=== PATIENT | male | born 1950 | race Caucasian/White ===

== ENCOUNTER 2018-12-02 13:23 | Inpatient (IN) | payer OTHER, BC ==
--- NOTE | 2018-12-02 13:43 | PDOC ---
History of Present Illness - General Chief Complaint: Wound Stated Complaint: PCP SENT Time Seen by Provider: 12/02/18 13:42 - History of Present Illness Initial Comments: 68yo M with PMH of DM and HTN presenting with wound on his left foot. Patient reports that this wound has been present since about four months ago due to rubbing against the inside of his sneaker and has not healed. He presented to the ED at [facility] twice, most recently last Friday and was administered IV antibiotics while in the department. He was advised stay for admission, but declined. Patient was started on outpatient antibiotics Keflex and Bactrim. He saw his primary care physician, Dr. Tinajero, today who sent him to a corrections sergeant, Dr. Stewart upstairs from the clinic. Dr. Stewart recommended that the patient come to the ED and be admitted under Dr. Roche, with consults to Dr. Myles, Dr. Hardy, and Dr. Stewart. Patient has no acute complaints. No fever, chills, chest pain, or shortness of breath. Past History - Past Medical History Allergies/Adverse Reactions: Allergies Allergy/AdvReac Type Severity Reaction Status Date / Time No Known Allergies Allergy Verified 12/02/18 13:43 Home Medications: Ambulatory Orders Cephalexin [Keflex] 500 mg PO BID 12/02/18 Hydrochlorothiazide [Hctz -] 25 mg PO DAILY 12/02/18 Losartan Potassium 100 mg PO DAILY 12/02/18 Sulfamethoxazole/Trimethoprim [Sulfamethoxazole-Tmp Ds Tablet] 1 each PO BID 01/19 metFORMIN HCL [Metformin HCl] 850 mg PO BID 12/02/18 COPD: No CHF: No Diabetes: Yes - Suicide/Smoking/Psychosocial Hx Smoking History: Never smoked Have you smoked in the past 12 months: No Information on smoking cessation initiated: No Hx Alcohol Use: No Drug/Substance Use Hx: No Review of Systems - Review of Systems Comments:: Constitutional: no fever, no chills HEENT: no throat pain, no dysphagia Cardiovascular: no chest pain, no palpitations Respiratory: no cough, no shortness of breath Gastrointestinal: no abdominal pain, no nausea, no vomiting Genitourinary: no dysuria, no frequency Musculoskeletal: no myalgia, no arthralgia Skin: +wound, no itching Neurologic: no headache, no dizziness *Physical Exam - Vital Signs Last Vital Signs Temp Pulse Resp BP Pulse Ox 98.0 F 61 16 94/63 100 12/02/18 13:30 12/02/18 13:30 12/02/18 13:30 12/02/18 13:30 12/02/18 13:30 - Physical Exam Comments: General: Awake, alert, and fully oriented, in no acute distress Head: No signs of trauma Eyes: EOMI, sclera anicteric ENT: Moist mucus membranes Neck: Normal ROM, supple Lungs: Lungs clear, Normal breath sounds Cardio: Regular rhythm, S1 and S2 present Abdomen: Soft, nontender. No guarding, no rebound, no masses Extremities: Normal range of motion, Wound on left foot overlying the fifth metatarsal and proximal phalanx with two stage four ulcers- one on the superior and one on the inferior aspect, with surrounding induration and erythema, redness has been demarcated with a pen SKIN: Warm, Dry, normal turgor Neurologic: Cranial nerves II through XII grossly intact. Normal speech Moderate Sedation - Procedure Monitoring Vital Signs: Procedure Monitoring Vital Signs Temperature 98.0 F 12/02/18 13:30 Pulse Rate 61 12/02/18 13:30 Respiratory Rate 16 12/02/18 13:30 Blood Pressure 94/63 12/02/18 13:30 O2 Sat by Pulse Oximetry (%) 100 12/02/18 13:30 ED Treatment Course - LABORATORY CBC & Chemistry Diagram: 12/02/18 14:55 12/02/18 14:55 Medical Decision Making - Medical Decision Making 68yo M with PMH of DM and HTN presenting with wound on his left foot. -DDX includes but not limited to foot ulcer, osteomyelitis, sepsis, orthostatic hypotension -Pre-op labs: no leukocytosis or anemia, electrolytes with elevated BUN and Cr ( do not know patient's baseline as he has never been here before) -Zq=804, slightly low, 1L NS ordered -Though patient appears clinically non-toxic, unknown why he is hypotensive. Fluid hydration with partial septic workup: UA/UCx, CXR, Blood Cx -Antibiotics: Vanc and Zosyn -L. foot xray: "arthritic changes. possible osteomyelitis involvement of left fifth metatarsal and left toe proximal phalanx" -ESR/CRP= 71/3.1 elevated -Discussed case with Dr. Burger who accepted patient for admission. 12/02/18 17:00 *DC/Admit/Observation/Transfer Diagnosis at time of Disposition: Osteomyelitis - Discharge Dispostion Condition at time of disposition: Guarded Decision to Admit order: Yes - Referrals - Patient Instructions - Post Discharge Activity
--- NOTE | 2018-12-02 15:19 | PDOC ---
Attending Attestation - HPI HPI: 12/02/18 16:16 The patient is a 68-year-old male, with a past medical history of DM, who was sent to the ED by his PCP for evaluation of a nonhealing LT foot wound to the base of the 5th digit. <Esha Priest - Last Filed: 12/02/18 16:16> - Resident Resident Name: Ally Winslow - ED Attending Attestation I have performed the following: I have examined & evaluated the patient, The case was reviewed & discussed with the resident, I agree w/resident's findings & plan, Exceptions are as noted - Physicial Exam PE: 12/02/18 16:36 Patient is awake and alert, nontoxic-appearing, borderline hypotensive and initial evaluation, afebrile Normocephalic and atraumatic cta rrr sft, nt, nd + 2 ulcers (stage IV) in noted to the base of the fifth phalange of the left foot with extensive surrounding erythema. Dorsalis pedis and tibialis posterior are +2 - Medical Decision Making 12/02/18 16:40 68-year-old male with history of diabetes, hypertension presents with signs and symptoms of acute osteomyelitis. Foot x-ray reveals bony distraction of the distal fifth metatarsal and the proximal phalanx. Wound culture and blood cultures been obtained. We'll cover with broad-spectrum antibiotics. Consult podiatry. Will admit. <Eloy Fatima - Last Filed: 12/02/18 16:42> Attestations - Attestations 12/02/18 16:16 Documentation prepared by Esha Priest, acting as medical geneticist for Eloy Fatima MD. <Esha Priest - Last Filed: 12/02/18 16:16>
[2018-12-02 15:29] LABS: BASO % 0.9 % (0-2.0); EOS % 0.5 % (0-4.5); HEMATOCRIT 40.5 % (35.4-49); HEMOGLOBIN 13.5 GM/dL (11.7-16.9); LYMPH % 12.2 % (8-40); MCH 29.6 pg (25.7-33.7); MCHC 33.5 g/dl (32.0-35.9); MEAN CELL VOLUME 88.6 fl (80-96); MEAN PLT VOLUME 8.6 fl (7.5-11.1); MONO % 6.6 % (3.8-10.2); NEUT % 79.8 % (42.8-82.8); PLATELET COUNT 298 K/MM3 (134-434); RBC 4.57 M/mm3 (4.00-5.60); RDW 12.2 % (11.9-15.9); WHITE BLOOD COUNT 8.3 K/mm3 (4.0-10.0)
[2018-12-02 15:40] LABS: INR 1.24 (0.83-1.09); PROTHROMBIN TIME (PATIENT) 14.7 SEC (9.7-13.0)
[2018-12-02 15:43] LABS: ACTIVATED PTT 25.6 SECONDS (25.2-36.5)
[2018-12-02] MEDS ORDERED: PIPERACILLIN/TAZOB 4.5 GM 4.5 GM in DEXTROSE 5%-WATER 100 ML IVPB ONE (16:05)
[2018-12-02] MEDS ORDERED: VANCOMYCIN 1,000 MG in DEXTROSE 5%-WATER - 250 ML IVPB ONE (16:05)
[2018-12-02 16:07] LABS: ALBUMIN 3.1 g/dl (3.4-5.0); ALK PHOS 78 U/L (45-117); ANION GAP 7 MMOL/L (8-16); BILIRUBIN,TOTAL 0.9 mg/dL (0.2-1); BLOOD UREA NITROGEN 24 mg/dL (7-18); CALCIUM 8.9 mg/dL (8.5-10.1); CHLORIDE 94 mmol/L (98-107); CO2 30 mmol/L (21-32); CREATININE 1.4 mg/dL (0.55-1.3); GLUCOSE,RANDOM 202 mg/dL (74-106); POTASSIUM 4.6 mmol/L (3.5-5.1); SGOT/AST 18 U/L (15-37); SGPT/ALT 28 U/L (13-61); SODIUM 132 mmol/L (136-145); TOT PROT 7.1 g/dl (6.4-8.2)
[2018-12-02] MEDS ORDERED: SODIUM CHLORIDE 1,000 ML IV STA (16:12)
[2018-12-02] MEDS ORDERED: PIPERACILLIN/TAZOB 4.5 GM 4.5 GM/100 ML BAG IVPB ONE (16:26)
[2018-12-02] MEDS ORDERED: VANCOMYCIN 1 GRAM (PRE-DOCKED) 1,000 MG/250 ML BAG IVPB ONE (16:42)
[2018-12-02 16:57] LABS: URINE APPEARANCE CLOUDY; URINE BILIRUBIN NEGATIVE (<2.0 mg/dL); URINE COLOR LTYELLOW; URINE GLUCOSE (UA) NEGATIVE (NEGATIVE); URINE KETONE NEGATIVE (NEGATIVE); URINE LEUK ESTERASE NEGATIVE (NEGATIVE); URINE NITRITE NEGATIVE (NEGATIVE); URINE PROTEIN NEGATIVE (NEGATIVE); URINE UROBILINOGEN NEGATIVE mg/dL (0.2-1.0)
--- NOTE | 2018-12-02 18:06 | EKG ---
Test Reason : Blood Pressure : / mmHG Vent. Rate : 096 BPM Atrial Rate : 096 BPM P-R Int : 222 ms QRS Dur : 090 ms QT Int : 340 ms P-R-T Axes : 016 013 027 degrees QTc Int : 429 ms SINUS RHYTHM WITH 1ST DEGREE A-V BLOCK NONSPECIFIC ST AND T WAVE ABNORMALITY ABNORMAL ECG NO PREVIOUS ECGS AVAILABLE Confirmed by AMANDA GARZA MD ([id number]) on 12/02/2018 6:05:39 PM Referred By: Confirmed By:AMANDA GARZA MD
[2018-12-02 20:06] LABS: ERYTHROCYTE SEDIMENTATION RATE 71 mm/hr (0-20)
--- NOTE | 2018-12-02 22:20 | HP ---
Admitting History and Physical - Smoking History Smoking history: Never smoked Have you smoked in the past 12 months: No - Alcohol/Substance Use Hx Alcohol Use: No Home Medications - Allergies Allergies/Adverse Reactions: Allergies Allergy/AdvReac Type Severity Reaction Status Date / Time No Known Allergies Allergy Verified 12/02/18 13:43 - Home Medications Home Medications: Ambulatory Orders Cephalexin [Keflex] 500 mg PO BID 12/02/18 Hydrochlorothiazide [Hctz -] 25 mg PO DAILY 12/02/18 Losartan Potassium 100 mg PO DAILY 12/02/18 Sulfamethoxazole/Trimethoprim [Sulfamethoxazole-Tmp Ds Tablet] 1 each PO BID 01/19 metFORMIN HCL [Metformin HCl] 850 mg PO BID 12/02/18 Physical Examination Vital Signs: Vital Signs Temperature 98.6 F 12/02/18 19:40 Pulse Rate 97 H 12/02/18 19:40 Respiratory Rate 16 12/02/18 19:40 Blood Pressure 106/63 12/02/18 19:40 O2 Sat by Pulse Oximetry (%) 98 12/02/18 19:40 Labs: CBC, BMP 12/02/18 14:55 12/02/18 14:55
[2018-12-02] MEDS: HEPARIN NA (PORCINE) 5,000 UNITS/ML 1ML VIAL SQ SCH (22:31)
[2018-12-02] MEDS: INSULIN SLIDING SCALE (NOVOLOG) 1 VIAL SQ SCH (22:34)
[2018-12-03] MEDS: HEPARIN NA (PORCINE) 5,000 UNITS/ML 1ML VIAL SQ SCH ×3 (05:59→21:45)
[2018-12-03] MEDS: INSULIN SLIDING SCALE (NOVOLOG) 1 VIAL SQ SCH ×4 (05:59→22:14)
[2018-12-03] MEDS ORDERED: PT OWN MED DRAWER 7, Y5N ONE ×4 (06:12→21:24)
[2018-12-03 06:40] LABS: BASO % 1.1 % (0-2.0); EOS % 1.6 % (0-4.5); HEMATOCRIT 38.9 % (35.4-49); HEMOGLOBIN 12.9 GM/dL (11.7-16.9); LYMPH % 22.5 % (8-40); MCH 29.6 pg (25.7-33.7); MCHC 33.3 g/dl (32.0-35.9); MEAN PLT VOLUME 8.2 fl (7.5-11.1); MONO % 10.3 % (3.8-10.2); NEUT % 64.5 % (42.8-82.8); PLATELET COUNT 263 K/MM3 (134-434); RBC 4.37 M/mm3 (4.00-5.60); RDW 12.1 % (11.9-15.9); WHITE BLOOD COUNT 6.7 K/mm3 (4.0-10.0)
[2018-12-03 07:08] LABS: ALK PHOS 74 U/L (45-117); ANION GAP 8 MMOL/L (8-16); BILIRUBIN,TOTAL 0.4 mg/dL (0.2-1); BLOOD UREA NITROGEN 19 mg/dL (7-18); CALCIUM 8.8 mg/dL (8.5-10.1); CHLORIDE 99 mmol/L (98-107); CO2 30 mmol/L (21-32); CREATININE 1.2 mg/dL (0.55-1.3); GLUCOSE,RANDOM 142 mg/dL (74-106); POTASSIUM 4.7 mmol/L (3.5-5.1); SGOT/AST 15 U/L (15-37); SGPT/ALT 26 U/L (13-61); SODIUM 137 mmol/L (136-145); TOT PROT 6.6 g/dl (6.4-8.2)
--- NOTE | 2018-12-03 09:34 | CONSULT ---
Consult Consult Specialty:: Podiatry Reason for Consultation:: Infected diabetic foot ulcer left foot - History of Present Illness Chief Complaint: Infected left foot for over 2 weeks. History of Present Illness: Infected left foot wound for more than 2 weeks. - History Source History Provided By: Patient - Alcohol/Substance Use Hx Alcohol Use: No - Smoking History Smoking history: Never smoked Have you smoked in the past 12 months: No Home Medications - Allergies Allergies/Adverse Reactions: Allergies Allergy/AdvReac Type Severity Reaction Status Date / Time No Known Allergies Allergy Verified 12/02/18 13:43 - Home Medications Home Medications: Ambulatory Orders Cephalexin [Keflex] 500 mg PO BID 12/02/18 Hydrochlorothiazide [Hctz -] 25 mg PO DAILY 12/02/18 Losartan Potassium 100 mg PO DAILY 12/02/18 Sulfamethoxazole/Trimethoprim [Sulfamethoxazole-Tmp Ds Tablet] 1 each PO BID 01/19 metFORMIN HCL [Metformin HCl] 850 mg PO BID 12/02/18 Physical Exam Vital Signs: Vital Signs Temperature 98.2 F 12/03/18 06:00 Pulse Rate 80 12/03/18 06:00 Respiratory Rate 18 12/03/18 06:00 Blood Pressure 134/72 12/03/18 06:00 O2 Sat by Pulse Oximetry (%) 97 12/02/18 21:00 Extremities: Yes: Other (+cellulitis, +ulceration dorsal and plantar left foot, -mal odor, +necrotic tissue, +pvd) Labs: CBC, BMP 12/03/18 06:15 12/03/18 06:15 Assessment/Plan grade 3 wound left r/o om pvd Vascular consult and ID consult ordered. MRI. Hgba1c. CRP. Santyl dressing change daily. Patient anxious and eager to leave re-emphasized need for patients and allowing treatment to reduce morbidity. Will follow.
[2018-12-03] MEDS: LOSARTAN POTASSIUM 50 MG TABLET (FP) PO SCH (09:54)
[2018-12-03] MEDS: HYDROCHLOROTHIAZIDE 25 MG TABLET (FP) PO SCH (09:54)
--- NOTE | 2018-12-03 11:06 | CONSULT ---
- Consultation REQUESTING PROVIDER: CONSULT REQUEST: We have been asked to surgically evaluate this patient for left foot ulcer. PCP:Ally Burger HISTORY OF PRESENT ILLNESS: The patient is a 77 yo male who presented for admission after being seen by Dr. Martines in his office. He has a new diagnosis of DM after being admitted to [facility] in the past 2 to 3 months. He was seen and treated at [facility] for his left foot wound and infection at that time. More recently he went there last week when he was feeling ill and was seen but denied staying secondary to issues at home. This week he had a follow up appointment his primary care doctor and they sent him for an evaluation by Dr. Martines. Currently he denies any fever/chills and states that the redness has improved. He denies any history of lower extremity claudicating symptoms, no numbness or tingling to his feet. He ambulates without any assist devices and besides the current ulcer(for the past several months) he has no history of ulcers to his lower extremities. He has never been a smoker. PMHx: DM, HTN PSHx: denies Home Medications Medication Instructions Recorded Cephalexin [Keflex] 500 mg PO BID 12/02/18 Hydrochlorothiazide [Hctz -] 25 mg PO DAILY 12/02/18 Losartan Potassium 100 mg PO DAILY 12/02/18 Sulfamethoxazole/Trimethoprim 1 each PO BID 12/02/18 [Sulfamethoxazole-Tmp Ds Tablet] metFORMIN HCL [Metformin HCl] 850 mg PO BID 12/02/18 Allergies Allergy/AdvReac Type Severity Reaction Status Date / Time No Known Allergies Allergy Verified 12/02/18 13:43 REVIEW OF SYSTEMS: CONSTITUTIONAL: Absent: fever, chills CARDIOVASCULAR: Absent: chest pain, palpitations RESPIRATORY: Absent: cough, shortness of breath GASTROINTESTINAL: Absent: abdominal pain,has never had a colonoscopy GENITOURINARY: Absent: dysuria, hematuria MUSCULOSKELETAL: Absent: back pain, neck pain Present: bilateral knee pain NEUROLOGIC: Absent: focal weakness, paresthesias PHYSICAL EXAM: GENERAL: Awake, alert, and fully oriented, in no acute distress. LOWER EXTREMITIES: 2+ PT pulses, +1 DP pulses-bilaterally feet are warm, well- perfused. Left lateral 5th toe with 1x1cm ulcer/superficial with fibrinous material at the base. No foul odor. Surrounding erythema with evidence of improving(based on skin markings with pen) NEUROLOGICAL: Normal speech, gait steady. PSYCH: Cooperative. Good eye contact. Appropriate mood and affect. . Vital Signs Temperature 98.2 F 12/03/18 06:00 Pulse Rate 80 12/03/18 06:00 Respiratory Rate 18 12/03/18 06:00 Blood Pressure 134/72 12/03/18 06:00 O2 Sat by Pulse Oximetry (%) 97 12/02/18 21:00 Lab Results WBC 6.7 K/mm3 (4.0-10.0) 12/03/18 06:15 RBC 4.37 M/mm3 (4.00-5.60) 12/03/18 06:15 Hgb 12.9 GM/dL (11.7-16.9) 12/03/18 06:15 Hct 38.9 % (35.4-49) 12/03/18 06:15 MCV 89.0 fl (80-96) 12/03/18 06:15 MCHC 33.3 g/dl (32.0-35.9) 12/03/18 06:15 RDW 12.1 % (11.9-15.9) 12/03/18 06:15 Plt Count 263 K/MM3 (134-434) 12/03/18 06:15 Sodium 137 mmol/L (136-145) 12/03/18 06:15 Potassium 4.7 mmol/L (3.5-5.1) 12/03/18 06:15 Chloride 99 mmol/L (98-107) 12/03/18 06:15 Carbon Dioxide 30 mmol/L (21-32) 12/03/18 06:15 Anion Gap 8 MMOL/L (8-16) 12/03/18 06:15 BUN 19 mg/dL (7-18) H 12/03/18 06:15 Creatinine 1.2 mg/dL (0.55-1.3) 12/03/18 06:15 Random Glucose 142 mg/dL (74-106) H 12/03/18 06:15 Calcium 8.8 mg/dL (8.5-10.1) 12/03/18 06:15 Blood Type B POSITIVE 12/02/18 20:55 Antibody Screen Negative 12/02/18 14:55 INR 1.24 (0.83-1.09) H 12/02/18 14:55 Xray: left 5th metatarsal and proximal phalanx with possible evidence of osteomyelitits. Soft tissue edema and swelling. Problem List - Problems (1) Diabetic foot infection Assessment/Plan: Pt without and evidence of acute ischemia to the left foot. He has faint distal pulses with palpation and no history of claudication symptoms. His ulcer appears to be improving with IV abx. Xray is suspicious for osteomyelitits underlying the left 5th base of toe ulcer. Recommend local wound care with santyl daily dressing changes. MRI is ordered to evaluate for osteomyelitits. D/w Dr. Hardy and will obtain a CTA of the left leg Code(s): E11.628 - TYPE 2 DIABETES MELLITUS WITH OTHER SKIN COMPLICATIONS; L08.9 - LOCAL INFECTION OF THE SKIN AND SUBCUTANEOUS TISSUE, UNSP
--- NOTE | 2018-12-03 14:15 | CON.ID ---
Consult Consult Specialty:: infectious diseases Referred by:: Reason for Consultation:: swelling of the foot and probably osteo of the leg - History of Present Illness Chief Complaint: pain and swelling of the left leg History of Present Illness: 68yo M with PMH of DM and HTN presenting with wound on his left foot. Patient reports that this wound has been present since about four months ago due to rubbing against the inside of his sneaker and has not healed. He presented to the ED at [facility] twice, most recently last Friday and was administered IV antibiotics while in the department. He was advised stay for admission, but declined. Patient was started on outpatient antibiotics Keflex and Bactrim. patient leg has worsened and has been advised admission to try to save his toe and to see osteo and treat the patient - History Source History Provided By: Patient Limitations to Obtaining History: No Limitations - Alcohol/Substance Use Hx Alcohol Use: No - Smoking History Smoking history: Never smoked Have you smoked in the past 12 months: No Home Medications - Allergies Allergies/Adverse Reactions: Allergies Allergy/AdvReac Type Severity Reaction Status Date / Time No Known Allergies Allergy Verified 12/02/18 13:43 - Home Medications Home Medications: Ambulatory Orders Cephalexin [Keflex] 500 mg PO BID 12/02/18 Hydrochlorothiazide [Hctz -] 25 mg PO DAILY 12/02/18 RX: Losartan Potassium 100 mg PO DAILY 12/02/18 Sulfamethoxazole/Trimethoprim [Sulfamethoxazole-Tmp Ds Tablet] 1 each PO BID 01/19 metFORMIN HCL [Metformin HCl] 850 mg PO BID 12/02/18 Review of Systems - Review of Systems Constitutional: reports: No Symptoms Eyes: reports: No Symptoms HENT: reports: No Symptoms Neck: reports: No Symptoms Cardiovascular: reports: No Symptoms Respiratory: reports: No Symptoms Gastrointestinal: reports: No Symptoms Genitourinary: reports: No Symptoms Musculoskeletal: reports: Other Integumentary: reports: Erythema, Lesions Neurological: reports: No Symptoms Endocrine: reports: No Symptoms Hematology/Lymphatic: reports: No Symptoms Psychiatric: reports: No Symptoms Physical Exam Vital Signs: Vital Signs Temperature 98.2 F 12/03/18 06:00 Pulse Rate 80 12/03/18 06:00 Respiratory Rate 18 12/03/18 06:00 Blood Pressure 134/72 12/03/18 06:00 O2 Sat by Pulse Oximetry (%) 97 01/02/19 21:00 Constitutional: Yes: Well Nourished, Calm, Mild Distress Eyes: Yes: Conjunctiva Clear HENT: Yes: Atraumatic, Normocephalic Neck: Yes: Supple, Trachea Midline Cardiovascular: Yes: Regular Rate and Rhythm Respiratory: Yes: Regular, CTA Bilaterally Gastrointestinal: Yes: Normal Bowel Sounds, Soft Musculoskeletal: Yes: Other Extremities: Yes: Erythema (left foot) Integumentary: Yes: Erythema, Other Wound/Incision: Yes: Dressing Removed, Other (wound looked at,probably going to the bone) Neurological: Yes: Alert, Oriented Psychiatric: Yes: Alert, Oriented Labs: CBC, BMP 12/03/18 06:15 12/03/18 06:15 Imaging - Results Chest X-ray: Report Reviewed, Image Reviewed X-ray: Report Reviewed, Image Reviewed Assessment/Plan patient with medical problems osteo of the left 5th toe erythema of the foot plan will start patient on abx podiatry on case await for further imaging studies rest as per the team
[2018-12-03] MEDS ORDERED: DEXTROSE 5%-WATER - 50 ML IVPB ONE ×2 (14:43→17:35)
[2018-12-03] MEDS ORDERED: PIPERACILLIN/TAZOBACTAM 3.375 GM VIAL IVPB ONE ×2 (14:43→17:34)
[2018-12-03] MEDS: PIPERACILLIN/TAZOB 3.375 GM 3.375 GM in DEXTROSE 5%-WATER - 50 ML IVPB SCH ×2 (14:56→18:23)
[2018-12-03] MEDS: COLLAGENASE CLOSTRIDIUM HIST. 30 GRAMS TUBE TP SCH (14:57)
--- NOTE | 2018-12-03 16:09 | PN ---
Progress Note (short form) - Note Progress Note: Vascular surgery Pt seen and examined. Left fifth toe ulcer for over two months. Pt has been going to [facility] for evaluation. NOw comes into [facility]. On exam -- left fifth toe ulcer. Palpable PT pulse. No DP pulse palpable - only dopplerable. Will order CTA to check runoff into foot. Podiatry on case -- MRI ordered to rule out osteo. Will follow cta Ole Hardy DO
--- NOTE | 2018-12-03 23:38 | PN ---
Progress Note, Physician - Current Medication List Current Medications: Active Medications Collagenase (Santyl -) 1 applic TP DAILY [facility]; Protocol Last Admin: 12/03/18 14:57 Dose: 1 applic Heparin Sodium (Porcine) (Heparin -) 5,000 unit SQ TID [facility] Last Admin: 12/03/18 21:45 Dose: 5,000 unit Hydrochlorothiazide (Hctz -) 25 mg PO DAILY [facility] Last Admin: 12/03/18 09:54 Dose: 25 mg Piperacillin Sod/Tazobactam (Sod 3.375 gm/ Dextrose) 50 mls @ 100 mls/hr IVPB Q8H-IV [facility]; Protocol Last Admin: 12/03/18 18:23 Dose: 100 mls/hr Insulin Aspart (Novolog Vial Sliding Scale -) 1 vial SQ ACHS [facility]; Protocol Last Admin: 12/03/18 22:14 Dose: 2 unit Losartan Potassium (Cozaar -) 100 mg PO DAILY [facility] Last Admin: 12/03/18 09:54 Dose: 100 mg Metformin HCl (Glucophage -) 850 mg PO BIDAC [facility] Last Admin: 12/03/18 17:57 Dose: Not Given - Objective Vital Signs: Vital Signs Temperature 98.1 F 12/03/18 14:21 Pulse Rate 91 H 12/03/18 14:21 Respiratory Rate 17 12/03/18 14:21 Blood Pressure 115/73 12/03/18 14:21 O2 Sat by Pulse Oximetry (%) 99 12/03/18 09:00 Labs: CBC, BMP 12/03/18 06:15 12/03/18 06:15 INR, PTT INR 1.24 (0.83-1.09) H 12/02/18 14:55
[2018-12-04] MEDS ORDERED: PIPERACILLIN/TAZOBACTAM 3.375 GM VIAL IVPB ONE ×4 (00:58→17:29)
[2018-12-04] MEDS ORDERED: DEXTROSE 5%-WATER - 50 ML IVPB ONE ×4 (00:58→17:29)
[2018-12-04] MEDS: PIPERACILLIN/TAZOB 3.375 GM 3.375 GM in DEXTROSE 5%-WATER - 50 ML IVPB SCH ×3 (01:13→17:38)
[2018-12-04] MEDS: HEPARIN NA (PORCINE) 5,000 UNITS/ML 1ML VIAL SQ SCH ×3 (05:21→21:26)
[2018-12-04] MEDS: INSULIN SLIDING SCALE (NOVOLOG) 1 VIAL SQ SCH ×4 (07:03→21:26)
[2018-12-04] MEDS ORDERED: PT OWN MED DRAWER 7, Y5N ONE ×2 (07:07→08:19)
[2018-12-04] MEDS: HYDROCHLOROTHIAZIDE 25 MG TABLET (FP) PO SCH (09:49)
[2018-12-04] MEDS: LOSARTAN POTASSIUM 50 MG TABLET (FP) PO SCH (09:49)
--- NOTE | 2018-12-04 14:33 | PN ---
Progress Note (short form) - Note Progress Note: Patient seen in bed. VSS Tmax=97.9 +om, +cellulitis, +grade 3 wound left foot, reviewed CTA om wound Discussed with pt the current tx plan. Gave him the option of IVABX, HBO to try to save toe and part of foot vs amputation of toe and 5th met head and removing necrotic tissue. Patient given time to discuss with his . He has opted for having surgical intervention as he wants to opt for whatever is quicker and he states he is claustrophobic. I discussed with vascular and he has cleared for debridement of bone and soft tissue. Will most likely need intervention on right lower extremity as vascular disease is much worse on that side. Patient is on schedule for 9:30am on Friday. Please maximize for OR. Continue Yeseniayl.
--- NOTE | 2018-12-04 15:05 | PN ---
Progress Note, Physician History of Present Illness: patient stable doing well tells me he is going to opt for amputation otherwise no issues - Current Medication List Current Medications: Active Medications Collagenase (Santyl -) 1 applic TP DAILY [facility]; Protocol Last Admin: 12/03/18 14:57 Dose: 1 applic Heparin Sodium (Porcine) (Heparin -) 5,000 unit SQ TID [facility] Last Admin: 12/04/18 13:45 Dose: 5,000 unit Hydrochlorothiazide (Hctz -) 25 mg PO DAILY [facility] Last Admin: 12/04/18 09:49 Dose: 25 mg Piperacillin Sod/Tazobactam (Sod 3.375 gm/ Dextrose) 50 mls @ 100 mls/hr IVPB Q8H-IV [facility]; Protocol Last Admin: 12/04/18 11:08 Dose: 100 mls/hr Insulin Aspart (Novolog Vial Sliding Scale -) 1 vial SQ ACHS [facility]; Protocol Last Admin: 12/04/18 12:02 Dose: 2 unit Losartan Potassium (Cozaar -) 100 mg PO DAILY [facility] Last Admin: 12/04/18 09:49 Dose: 100 mg Metformin HCl (Glucophage -) 850 mg PO BIDAC [facility] Last Admin: 12/04/18 07:02 Dose: Not Given - Objective Vital Signs: Vital Signs Temperature 98.0 F 12/04/18 06:00 Pulse Rate 105 H 12/04/18 06:00 Respiratory Rate 18 12/04/18 06:00 Blood Pressure 127/75 12/04/18 06:00 O2 Sat by Pulse Oximetry (%) 99 12/03/18 21:00 Constitutional: Yes: No Distress, Calm Cardiovascular: Yes: Regular Rate and Rhythm Respiratory: Yes: Regular, CTA Bilaterally Musculoskeletal: Yes: WNL Extremities: Yes: WNL Wound/Incision: Yes: Dressing Dry and Intact Neurological: Yes: Alert, Oriented Psychiatric: Yes: Alert, Oriented Labs: CBC, BMP 12/03/18 06:15 12/03/18 06:15 INR, PTT INR 1.24 (0.83-1.09) H 12/02/18 14:55 Assessment/Plan patient with medical problems osteo of the left 5th toe erythema of the foot plan continue abx await for amputation of the toe wound care rest as per the team
[2018-12-04] MEDS: COLLAGENASE CLOSTRIDIUM HIST. 30 GRAMS TUBE TP SCH (17:38)
--- NOTE | 2018-12-04 19:30 | PN ---
Progress Note, Physician - Current Medication List Current Medications: Active Medications Collagenase (Santyl -) 1 applic TP DAILY [facility]; Protocol Last Admin: 12/04/18 17:38 Dose: 1 applic Heparin Sodium (Porcine) (Heparin -) 5,000 unit SQ TID [facility] Last Admin: 12/04/18 13:45 Dose: 5,000 unit Hydrochlorothiazide (Hctz -) 25 mg PO DAILY [facility] Last Admin: 12/04/18 09:49 Dose: 25 mg Piperacillin Sod/Tazobactam (Sod 3.375 gm/ Dextrose) 50 mls @ 100 mls/hr IVPB Q8H-IV [facility]; Protocol Last Admin: 12/04/18 17:38 Dose: 100 mls/hr Insulin Aspart (Novolog Vial Sliding Scale -) 1 vial SQ ACHS [facility]; Protocol Last Admin: 12/04/18 17:36 Dose: 2 unit Losartan Potassium (Cozaar -) 100 mg PO DAILY [facility] Last Admin: 12/04/18 09:49 Dose: 100 mg Metformin HCl (Glucophage -) 850 mg PO BIDAC [facility] Last Admin: 12/04/18 16:33 Dose: Not Given - Objective Vital Signs: Vital Signs Temperature 97.4 F L 12/04/18 18:00 Pulse Rate 94 H 12/04/18 18:00 Respiratory Rate 18 12/04/18 18:00 Blood Pressure 104/64 12/04/18 18:00 O2 Sat by Pulse Oximetry (%) 98 12/04/18 09:00 Labs: CBC, BMP 12/03/18 06:15 12/03/18 06:15 INR, PTT INR 1.24 (0.83-1.09) H 12/02/18 14:55
[2018-12-05] MEDS ORDERED: DEXTROSE 5%-WATER - 50 ML IVPB ONE ×3 (02:13→17:42)
[2018-12-05] MEDS ORDERED: PIPERACILLIN/TAZOBACTAM 3.375 GM VIAL IVPB ONE ×3 (02:13→17:42)
[2018-12-05] MEDS: PIPERACILLIN/TAZOB 3.375 GM 3.375 GM in DEXTROSE 5%-WATER - 50 ML IVPB SCH ×3 (02:29→18:14)
[2018-12-05] MEDS: HEPARIN NA (PORCINE) 5,000 UNITS/ML 1ML VIAL SQ SCH ×3 (06:01→22:10)
[2018-12-05] MEDS: INSULIN SLIDING SCALE (NOVOLOG) 1 VIAL SQ SCH ×4 (06:48→22:10)
--- NOTE | 2018-12-05 09:57 | PN ---
Progress Note (short form) - Note Progress Note: Patient seen in bed. VSS Tmax=99.1 +om, +cellulitis, +grade 3 wound left foot, reviewed CTA, culture mary crossi, lisa coag neg om dm patient states he discussed with his and has agreed to have surgical intervention to debride bone and soft tissue with amputation of toe and 5th metatarsal head left foot.Patient fully understands all risks, benefits, and alternatives. scheduled for 930 am on Friday.Consent placed in chart. continue santyl dressing change till or. npo. cbc with diff, hgba1c, inr ordered. please maximize for OR. ivabx as per id. discussed with Dr. Hardy and cleared for intervention surgically.
[2018-12-05] MEDS: HYDROCHLOROTHIAZIDE 25 MG TABLET (FP) PO SCH (10:20)
[2018-12-05] MEDS: LOSARTAN POTASSIUM 50 MG TABLET (FP) PO SCH (10:20)
[2018-12-05] MEDS: COLLAGENASE CLOSTRIDIUM HIST. 30 GRAMS TUBE TP SCH (13:15)
--- NOTE | 2018-12-05 16:22 | PN ---
Progress Note, Physician History of Present Illness: Pt seen and examined. Events reviewed. Pt is currently without specific complaints. He states he has less pain in Lt foot. Has decided on amputation of Lt 5th toe. - Current Medication List Current Medications: Active Medications Collagenase (Santyl -) 1 applic TP DAILY [facility]; Protocol Last Admin: 12/05/18 13:15 Dose: 1 applic Heparin Sodium (Porcine) (Heparin -) 5,000 unit SQ TID [facility] Last Admin: 12/05/18 13:10 Dose: 5,000 unit Hydrochlorothiazide (Hctz -) 25 mg PO DAILY [facility] Last Admin: 12/05/18 10:20 Dose: 25 mg Piperacillin Sod/Tazobactam (Sod 3.375 gm/ Dextrose) 50 mls @ 100 mls/hr IVPB Q8H-IV [facility]; Protocol Last Admin: 12/05/18 10:20 Dose: 100 mls/hr Insulin Aspart (Novolog Vial Sliding Scale -) 1 vial SQ ACHS [facility]; Protocol Last Admin: 12/05/18 12:13 Dose: 4 unit Losartan Potassium (Cozaar -) 100 mg PO DAILY [facility] Last Admin: 12/05/18 10:20 Dose: 100 mg Metformin HCl (Glucophage -) 850 mg PO BIDAC [facility] Last Admin: 12/05/18 06:00 Dose: Not Given - Objective Vital Signs: Vital Signs Temperature 98.4 F 12/05/18 14:34 Pulse Rate 88 12/05/18 14:34 Respiratory Rate 20 12/05/18 14:34 Blood Pressure 109/69 12/05/18 14:34 O2 Sat by Pulse Oximetry (%) 97 12/04/18 21:00 Constitutional: Yes: No Distress, Calm Cardiovascular: Yes: Regular Rate and Rhythm Respiratory: Yes: Regular Gastrointestinal: Yes: Normal Bowel Sounds, Soft Genitourinary: Yes: WNL Wound/Incision: Yes: Other (Lt 5th toe ulcer, minimal erythema) Neurological: Yes: Alert Labs: CBC, BMP 12/03/18 06:15 12/03/18 06:15 INR, PTT INR 1.24 (0.83-1.09) H 12/02/18 14:55 Problem List - Problems (1) Diabetic foot infection Code(s): E11.628 - TYPE 2 DIABETES MELLITUS WITH OTHER SKIN COMPLICATIONS; L08.9 - LOCAL INFECTION OF THE SKIN AND SUBCUTANEOUS TISSUE, UNSP (2) Osteomyelitis Code(s): M86.9 - OSTEOMYELITIS, UNSPECIFIED Assessment/Plan Lt toe infection/Osteomyelitis Diabetic foot ulcer -- pt scheduled for amputation -- continue current antibiotics -- wound care -- tight glycemic control
--- NOTE | 2018-12-05 18:11 | PN ---
Progress Note, Physician - Current Medication List Current Medications: Active Medications Collagenase (Santyl -) 1 applic TP DAILY [facility]; Protocol Last Admin: 12/05/18 13:15 Dose: 1 applic Heparin Sodium (Porcine) (Heparin -) 5,000 unit SQ TID [facility] Last Admin: 12/05/18 13:10 Dose: 5,000 unit Hydrochlorothiazide (Hctz -) 25 mg PO DAILY [facility] Last Admin: 12/05/18 10:20 Dose: 25 mg Piperacillin Sod/Tazobactam (Sod 3.375 gm/ Dextrose) 50 mls @ 100 mls/hr IVPB Q8H-IV [facility]; Protocol Last Admin: 12/05/18 10:20 Dose: 100 mls/hr Insulin Aspart (Novolog Vial Sliding Scale -) 1 vial SQ ACHS [facility]; Protocol Last Admin: 12/05/18 12:13 Dose: 4 unit Losartan Potassium (Cozaar -) 100 mg PO DAILY [facility] Last Admin: 12/05/18 10:20 Dose: 100 mg Metformin HCl (Glucophage -) 850 mg PO BIDAC [facility] Last Admin: 12/05/18 06:00 Dose: Not Given - Objective Vital Signs: Vital Signs Temperature 98.4 F 12/05/18 14:34 Pulse Rate 88 12/05/18 14:34 Respiratory Rate 20 12/05/18 14:34 Blood Pressure 109/69 12/05/18 14:34 O2 Sat by Pulse Oximetry (%) 97 12/05/18 09:00 Labs: CBC, BMP 12/03/18 06:15 12/03/18 06:15 INR, PTT INR 1.24 (0.83-1.09) H 12/02/18 14:55
[2018-12-06] MEDS ORDERED: PIPERACILLIN/TAZOBACTAM 3.375 GM VIAL IVPB ONE ×3 (02:00→17:24)
[2018-12-06] MEDS ORDERED: DEXTROSE 5%-WATER - 50 ML IVPB ONE ×3 (02:00→17:25)
[2018-12-06] MEDS: PIPERACILLIN/TAZOB 3.375 GM 3.375 GM in DEXTROSE 5%-WATER - 50 ML IVPB SCH ×3 (02:52→17:29)
[2018-12-06] MEDS: HEPARIN NA (PORCINE) 5,000 UNITS/ML 1ML VIAL SQ SCH ×3 (06:58→21:31)
[2018-12-06] MEDS: INSULIN SLIDING SCALE (NOVOLOG) 1 VIAL SQ SCH ×4 (07:17→21:31)
[2018-12-06] MEDS: HYDROCHLOROTHIAZIDE 25 MG TABLET (FP) PO SCH (09:41)
[2018-12-06] MEDS: LOSARTAN POTASSIUM 50 MG TABLET (FP) PO SCH (09:41)
[2018-12-06 12:49] LABS: INR 1.25 (0.83-1.09); PROTHROMBIN TIME (PATIENT) 14.8 SEC (9.7-13.0)
--- NOTE | 2018-12-06 13:11 | PN ---
Progress Note (short form) - Note Progress Note: Patient seen in bed. VSS Tmax=98.3 +om, +cellulitis, +grade 3 wound left foot,culture morganella morgani, staph coag neg om dm Patient aware that he is on schedule for tomorrow 9:30am. Patient fully understands all risks, benefits, and alternatives. Has no other questions. npo after midnight ivabx as per id. discussed with Dr. Hardy and cleared for intervention surgically. labs reviewed.
[2018-12-06 14:04] LABS: BASO % 0.9 % (0-2.0); EOS % 0.5 % (0-4.5); HEMATOCRIT 40.3 % (35.4-49); HEMOGLOBIN 13.2 GM/dL (11.7-16.9); LYMPH % 23.4 % (8-40); MCH 29.5 pg (25.7-33.7); MCHC 32.8 g/dl (32.0-35.9); MEAN CELL VOLUME 89.7 fl (80-96); MEAN PLT VOLUME 8.3 fl (7.5-11.1); MONO % 7.4 % (3.8-10.2); NEUT % 67.8 % (42.8-82.8); PLATELET COUNT 265 K/MM3 (134-434); RBC 4.49 M/mm3 (4.00-5.60); RDW 12.2 % (11.9-15.9); WHITE BLOOD COUNT 6.2 K/mm3 (4.0-10.0)
--- NOTE | 2018-12-06 16:29 | PN ---
Progress Note, Physician History of Present Illness: Pt states he feels well. Awaiting amputation of Lt toe. Has no new complaints. - Current Medication List Current Medications: Active Medications Collagenase (Santyl -) 1 applic TP DAILY [facility]; Protocol Last Admin: 12/05/18 13:15 Dose: 1 applic Heparin Sodium (Porcine) (Heparin -) 5,000 unit SQ TID [facility] Last Admin: 12/06/18 15:24 Dose: 5,000 unit Hydrochlorothiazide (Hctz -) 25 mg PO DAILY [facility] Last Admin: 12/06/18 09:41 Dose: 25 mg Piperacillin Sod/Tazobactam (Sod 3.375 gm/ Dextrose) 50 mls @ 100 mls/hr IVPB Q8H-IV [facility]; Protocol Last Admin: 12/06/18 09:42 Dose: 100 mls/hr Insulin Aspart (Novolog Vial Sliding Scale -) 1 vial SQ ACHS [facility]; Protocol Last Admin: 12/06/18 12:45 Dose: 6 unit Losartan Potassium (Cozaar -) 100 mg PO DAILY [facility] Last Admin: 12/06/18 09:41 Dose: 100 mg Metformin HCl (Glucophage -) 850 mg PO BIDAC [facility] Last Admin: 12/06/18 07:02 Dose: Not Given - Objective Vital Signs: Vital Signs Temperature 98.3 F 12/06/18 14:38 Pulse Rate 98 H 12/06/18 14:38 Respiratory Rate 20 12/06/18 14:38 Blood Pressure 112/67 12/06/18 14:38 O2 Sat by Pulse Oximetry (%) 97 12/05/18 21:00 Constitutional: Yes: No Distress, Calm Cardiovascular: Yes: Regular Rate and Rhythm Respiratory: Yes: Regular Gastrointestinal: Yes: Normal Bowel Sounds, Soft Wound/Incision: Yes: Dressing Dry and Intact Labs: CBC, BMP 12/06/18 10:00 12/03/18 06:15 INR, PTT INR 1.25 (0.83-1.09) H 12/06/18 10:00 Problem List - Problems (1) Diabetic foot infection Code(s): E11.628 - TYPE 2 DIABETES MELLITUS WITH OTHER SKIN COMPLICATIONS; L08.9 - LOCAL INFECTION OF THE SKIN AND SUBCUTANEOUS TISSUE, UNSP (2) Osteomyelitis Code(s): M86.9 - OSTEOMYELITIS, UNSPECIFIED Assessment/Plan Lt 5th toe infection/Osteomyelitis Diabetic foot ulcer -- amputation of toe scheduled -- continue IV antibiotics for now -- wound care -- tight glycemic control
[2018-12-06] MEDS: COLLAGENASE CLOSTRIDIUM HIST. 30 GRAMS TUBE TP SCH (17:13)
--- NOTE | 2018-12-06 23:38 | PN ---
Progress Note, Physician History of Present Illness: No new complaints - Current Medication List Current Medications: Active Medications Collagenase (Santyl -) 1 applic TP DAILY [facility]; Protocol Last Admin: 12/06/18 17:13 Dose: 1 applic Heparin Sodium (Porcine) (Heparin -) 5,000 unit SQ TID [facility] Last Admin: 12/06/18 21:31 Dose: Not Given Hydrochlorothiazide (Hctz -) 25 mg PO DAILY [facility] Last Admin: 12/06/18 09:41 Dose: 25 mg Piperacillin Sod/Tazobactam (Sod 3.375 gm/ Dextrose) 50 mls @ 100 mls/hr IVPB Q8H-IV [facility]; Protocol Last Admin: 12/06/18 17:29 Dose: 100 mls/hr Insulin Aspart (Novolog Vial Sliding Scale -) 1 vial SQ ACHS [facility]; Protocol Last Admin: 12/06/18 21:31 Dose: Not Given Losartan Potassium (Cozaar -) 100 mg PO DAILY [facility] Last Admin: 12/06/18 09:41 Dose: 100 mg Metformin HCl (Glucophage -) 850 mg PO BIDAC [facility] Last Admin: 12/06/18 17:18 Dose: 850 mg - Objective Vital Signs: Vital Signs Temperature 98.1 F 12/06/18 18:00 Pulse Rate 86 12/06/18 18:00 Respiratory Rate 20 12/06/18 18:00 Blood Pressure 109/54 L 12/06/18 18:00 O2 Sat by Pulse Oximetry (%) 97 12/06/18 09:00 Constitutional: Yes: Well Nourished Neck: Yes: WNL, Supple Cardiovascular: Yes: WNL, Regular Rate and Rhythm Respiratory: Yes: WNL, Regular, CTA Bilaterally Gastrointestinal: Yes: WNL, Normal Bowel Sounds, Soft Extremities: Yes: Other (Ulcer Lt 5th toe) Labs: CBC, BMP 12/06/18 10:00 12/03/18 06:15 INR, PTT INR 1.25 (0.83-1.09) H 12/06/18 10:00 Problem List - Problems (1) Diabetic foot infection Assessment/Plan: Cont IV antibxs Wound cultures (+) for Morganella BC remain negative Cont IV zosyn Pt for surgery in am for amputations lt 5th toe Code(s): E11.628 - TYPE 2 DIABETES MELLITUS WITH OTHER SKIN COMPLICATIONS; L08.9 - LOCAL INFECTION OF THE SKIN AND SUBCUTANEOUS TISSUE, UNSP (2) Diabetes Assessment/Plan: Cont metformin wc be held for am for surgery Cont sliding scale w/ coverage Code(s): E11.9 - TYPE 2 DIABETES MELLITUS WITHOUT COMPLICATIONS (3) HTN (hypertension) Assessment/Plan: Cont losartan/Hctz Code(s): I10 - ESSENTIAL (PRIMARY) HYPERTENSION (4) PAD (peripheral artery disease) Assessment/Plan: As per vasc surgery recommendations Code(s): I73.9 - PERIPHERAL VASCULAR DISEASE, UNSPECIFIED
[2018-12-07] MEDS ORDERED: PIPERACILLIN/TAZOBACTAM 3.375 GM VIAL IVPB ONE ×4 (02:20→16:41)
[2018-12-07] MEDS ORDERED: DEXTROSE 5%-WATER - 50 ML IVPB ONE ×3 (02:20→16:42)
[2018-12-07] MEDS: PIPERACILLIN/TAZOB 3.375 GM 3.375 GM in DEXTROSE 5%-WATER - 50 ML IVPB SCH ×3 (02:42→17:15)
[2018-12-07] MEDS: HEPARIN NA (PORCINE) 5,000 UNITS/ML 1ML VIAL SQ SCH (05:31)
[2018-12-07] MEDS: INSULIN SLIDING SCALE (NOVOLOG) 1 VIAL SQ SCH ×4 (07:05→22:12)
[2018-12-07 08:23] LABS: BASO % 0.9 % (0-2.0); HEMATOCRIT 40.1 % (35.4-49); HEMOGLOBIN 14.3 GM/dL (11.7-16.9); LYMPH % 27.2 % (8-40); MCH 31.5 pg (25.7-33.7); MCHC 35.8 g/dl (32.0-35.9); MEAN CELL VOLUME 88.2 fl (80-96); MEAN PLT VOLUME 8.5 fl (7.5-11.1); MONO % 7.3 % (3.8-10.2); NEUT % 63.6 % (42.8-82.8); PLATELET COUNT 285 K/MM3 (134-434); RBC 4.55 M/mm3 (4.00-5.60); RDW 12.4 % (11.9-15.9); WHITE BLOOD COUNT 7.5 K/mm3 (4.0-10.0)
[2018-12-07] MEDS ORDERED: LACTATED RINGERS SOLUTION 1,000 ML IV SCH ×2 (10:00→12:00)
[2018-12-07] MEDS: LOSARTAN POTASSIUM 50 MG TABLET (FP) PO SCH (10:00)
[2018-12-07] MEDS ORDERED: ONDANSETRON 4 MG/2 ML VIAL IVPUSH PRN ×2 (10:00→12:00)
[2018-12-07] MEDS: HYDROCHLOROTHIAZIDE 25 MG TABLET (FP) PO SCH (10:00)
[2018-12-07] MEDS ORDERED: PROPOFOL 20 ML ONE ×2 (10:08)
[2018-12-07] MEDS ORDERED: LIDOCAINE HCL/PF 2% SDV 5ML VIAL ONE (10:08)
[2018-12-07] MEDS ORDERED: MIDAZOLAM HCL 2 MG/2 ML SINGLE DOSE VIAL ONE (10:09)
[2018-12-07] MEDS ORDERED: DEXAMETHASONE SOD PHOSPHATE 4 MG/1 ML VIAL ONE (10:16)
[2018-12-07] MEDS ORDERED: BUPIVACAINE HCL/PF 0.5% (5MG/ML) 10 ML VIAL ONE (10:16)
[2018-12-07] MEDS ORDERED: LIDOCAINE HCL 1%, 10 MG/ML (20ML VIAL) ONE (10:16)
[2018-12-07] MEDS ORDERED: LIDOCAINE HCL 1%, 10 MG/ML (20ML VIAL) NR ONE (10:35)
[2018-12-07] MEDS ORDERED: BUPIVACAINE HCL/PF (5 MG/ML) 30 ML VIAL IJ ONE (10:35)
[2018-12-07] MEDS: COLLAGENASE CLOSTRIDIUM HIST. 30 GRAMS TUBE TP SCH (11:14)
--- NOTE | 2018-12-07 12:33 | OP ---
DATE OF OPERATION: 12/07/2018 SURGEON: Anders Stewart DPM PAID SEARCH SPECIALIST: Verito Turk DPM, PGY-3 PREOPERATIVE DIAGNOSIS: Left foot 5th toe and 5th metatarsal head osteomyelitis with diabetic foot ulcer. POSTOPERATIVE DIAGNOSIS: Left foot 5th metatarsal and 5th toe osteomyelitis with diabetic foot ulcer. PROCEDURE: Left 5th toe amputation and left 5th metatarsal head resection. ANESTHESIA: Local with MAC. PATHOLOGY: Bone and soft tissue. ESTIMATED BLOOD LOSS: 10 mL. HEMOSTASIS: Electrocautery. MATERIALS USED: A 3-0 nylon suture, 1/4-inch plain packing, postoperative dressing such as Betadine-soaked Adaptic, 4 x 4, sterile gauze, abdominal pad, Kerlix, and Vivek bandage. INJECTABLES: 10 mL of a 1:1 mixture of 1% lidocaine plain and 0.5% Marcaine plain used postoperatively. DESCRIPTION: The patient was brought to the operating room and placed on the operating table in a supine position. Following IV sedation, local anesthesia was obtained using a 1:1 mixture of 1% lidocaine plain and 0.5% Marcaine plain. Preoperatively, 10 mL total injected throughout the surgical site. The left foot was then scrubbed, prepped and draped in the usual aseptic manner. Attention was first directed to the left foot 5th toe. Using a number 15 blade, the 5th toe was disarticulated at the level of metatarsophalangeal joint and the base of the 5th proximal phalanx appeared to be soft, as well as the head of the 5th metatarsal, left foot. Noted to be fractured at the level of the head and disarticulated. The quality of the metatarsal head was noted to be very soft with pieces of bone. At this time, the 5th toe was removed and disarticulated at the level of metatarsophalangeal joint and sent to Pathology. Next, the head of the 5th metatarsal was also sent to Pathology. Care was taken to identify neurovascular structures. All bleeders were cauterized as necessary. Next, using sagittal saw, the 5th metatarsal was resected at the one-third distal aspect and the remaining bone appeared to be hard with viable soft tissue around it. At this time, the dorsal wound was incised using number 15 blade and passed from the operative field, and a plantar flap was created in order to bring it dorsally and close the wound partially. The wound was then irrigated with copious amounts of normal saline with bacitracin in it. The quality of soft tissue was assessed and appeared to be viable with healthy bleeding. The plantar flap was retracted dorsally and the wound was irrigated. Used retention sutures using 3-0 nylon retention sutures, and the incision site was packed distally using 1/4-inch plain packing. At this time, postoperative dressing such as Betadine-soaked Adaptic, 4 x 4's, sterile gauze, abdominal pad, Kerlix, and Vivek bandage applied to the left foot. Patient tolerated the procedure and anesthesia well and was transferred to the post-anesthesia care unit with vital signs stable and vascular status intact to the left lower extremity. Patient will be transferred to the floor and will be followed by Medicine and Podiatry team. Verito Turk DPM, PGY-3 dictating for JOSÉ MIGUEL Rodriguez DPM [id number]
--- NOTE | 2018-12-07 14:17 | PN ---
Progress Note, Physician History of Present Illness: doing well no new issues amputation done - Current Medication List Current Medications: Active Medications Hydrochlorothiazide (Hctz -) 25 mg PO DAILY [facility] Piperacillin Sod/Tazobactam (Sod 3.375 gm/ Dextrose) 50 mls @ 100 mls/hr IVPB Q8H-IV [facility]; Protocol Insulin Aspart (Novolog Vial Sliding Scale -) 1 vial SQ ACHS [facility]; Protocol Losartan Potassium (Cozaar -) 100 mg PO DAILY [facility] Ondansetron HCl (Zofran Injection) 4 mg IVPUSH Q6H PRN PRN Reason: NAUSEA AND/OR VOMITING - Objective Vital Signs: Vital Signs Temperature 98.4 F 12/07/18 12:30 Pulse Rate 84 12/07/18 12:30 Respiratory Rate 18 12/07/18 12:30 Blood Pressure 112/66 12/07/18 12:30 O2 Sat by Pulse Oximetry (%) 97 12/07/18 12:30 Constitutional: Yes: No Distress, Calm Cardiovascular: Yes: Regular Rate and Rhythm Respiratory: Yes: Regular, CTA Bilaterally Gastrointestinal: Yes: Normal Bowel Sounds, Soft Musculoskeletal: Yes: WNL Extremities: Yes: Erythema, Other Neurological: Yes: Alert, Oriented Psychiatric: Yes: Alert, Oriented Labs: CBC, BMP 12/07/18 06:30 12/03/18 06:15 INR, PTT INR 1.25 (0.83-1.09) H 12/06/18 10:00 Assessment/Plan patient with medical problems osteo of the left 5th toe erythema of the foot plan continue abx post amputation
--- NOTE | 2018-12-07 23:32 | PN ---
Progress Note, Physician History of Present Illness: Pt tolerated amputation - Current Medication List Current Medications: Active Medications Hydrochlorothiazide (Hctz -) 25 mg PO DAILY [facility] Piperacillin Sod/Tazobactam (Sod 3.375 gm/ Dextrose) 50 mls @ 100 mls/hr IVPB Q8H-IV [facility]; Protocol Last Admin: 12/07/18 17:15 Dose: 100 mls/hr Insulin Aspart (Novolog Vial Sliding Scale -) 1 vial SQ ACHS [facility]; Protocol Last Admin: 12/07/18 22:12 Dose: 2 units Losartan Potassium (Cozaar -) 100 mg PO DAILY [facility] Ondansetron HCl (Zofran Injection) 4 mg IVPUSH Q6H PRN PRN Reason: NAUSEA AND/OR VOMITING - Objective Vital Signs: Vital Signs Temperature 98.1 F 12/07/18 22:07 Pulse Rate 76 12/07/18 22:07 Respiratory Rate 18 12/07/18 22:07 Blood Pressure 130/70 12/07/18 22:07 O2 Sat by Pulse Oximetry (%) 97 12/07/18 21:00 Neck: Yes: WNL, Supple Cardiovascular: Yes: WNL, Regular Rate and Rhythm Respiratory: Yes: WNL, Regular, CTA Bilaterally Gastrointestinal: Yes: WNL, Normal Bowel Sounds, Soft Labs: CBC, BMP 12/07/18 06:30 12/03/18 06:15 INR, PTT INR 1.25 (0.83-1.09) H 12/06/18 10:00 Problem List - Problems (1) Diabetic foot infection Assessment/Plan: Cont IV antibxs Wound cultures (+) for Morganella BC remain negative Cont IV zosyn S/P amputation 5th toe Code(s): E11.628 - TYPE 2 DIABETES MELLITUS WITH OTHER SKIN COMPLICATIONS; L08.9 - LOCAL INFECTION OF THE SKIN AND SUBCUTANEOUS TISSUE, UNSP (2) Diabetes Assessment/Plan: Restart metformin Cont sliding scale w/ coverage Code(s): E11.9 - TYPE 2 DIABETES MELLITUS WITHOUT COMPLICATIONS (3) HTN (hypertension) Assessment/Plan: Cont losartan/Hctz Code(s): I10 - ESSENTIAL (PRIMARY) HYPERTENSION (4) PAD (peripheral artery disease) Assessment/Plan: As per vasc surgery recommendations Code(s): I73.9 - PERIPHERAL VASCULAR DISEASE, UNSPECIFIED
[2018-12-08] MEDS ORDERED: DEXTROSE 5%-WATER - 50 ML IVPB ONE ×3 (00:30→18:06)
[2018-12-08] MEDS ORDERED: PIPERACILLIN/TAZOBACTAM 3.375 GM VIAL IVPB ONE ×3 (00:30→18:06)
[2018-12-08] MEDS: PIPERACILLIN/TAZOB 3.375 GM 3.375 GM in DEXTROSE 5%-WATER - 50 ML IVPB SCH ×3 (01:54→18:15)
[2018-12-08] MEDS: INSULIN SLIDING SCALE (NOVOLOG) 1 VIAL SQ SCH ×4 (06:36→21:42)
[2018-12-08 07:02] LABS: EOS % 1.2 % (0-4.5); HEMATOCRIT 37.3 % (35.4-49); HEMOGLOBIN 12.3 GM/dL (11.7-16.9); LYMPH % 20.1 % (8-40); MCH 29.6 pg (25.7-33.7); MCHC 32.9 g/dl (32.0-35.9); MEAN PLT VOLUME 8.1 fl (7.5-11.1); MONO % 8.3 % (3.8-10.2); NEUT % 69.4 % (42.8-82.8); PLATELET COUNT 210 K/MM3 (134-434); RBC 4.14 M/mm3 (4.00-5.60); WHITE BLOOD COUNT 7.7 K/mm3 (4.0-10.0)
[2018-12-08 07:24] LABS: ALBUMIN 2.8 g/dl (3.4-5.0); ALK PHOS 60 U/L (45-117); ANION GAP 5 MMOL/L (8-16); BILIRUBIN,TOTAL 0.6 mg/dL (0.2-1); BLOOD UREA NITROGEN 26 mg/dL (7-18); CALCIUM 8.7 mg/dL (8.5-10.1); CHLORIDE 102 mmol/L (98-107); CO2 32 mmol/L (21-32); GLUCOSE,RANDOM 148 mg/dL (74-106); SGOT/AST 12 U/L (15-37); SGPT/ALT 23 U/L (13-61); SODIUM 139 mmol/L (136-145); TOT PROT 6.3 g/dl (6.4-8.2)
[2018-12-08] MEDS ORDERED: PT OWN MED DRAWER 7, Y5N ONE ×2 (08:14→08:41)
[2018-12-08] MEDS: HYDROCHLOROTHIAZIDE 25 MG TABLET (FP) PO SCH (09:41)
[2018-12-08] MEDS: LOSARTAN POTASSIUM 50 MG TABLET (FP) PO SCH (09:42)
--- NOTE | 2018-12-08 11:05 | PN ---
Progress Note (short form) - Note Progress Note: Anesthesia postop note 68 y/o M s/p MAC anesthesia for toe amputation POD#1, vss, aaox3, no complaints. No anesthesia complications.
--- NOTE | 2018-12-08 13:24 | PN ---
Progress Note, Physician - Current Medication List Current Medications: Active Medications Hydrochlorothiazide (Hctz -) 25 mg PO DAILY [facility] Last Admin: 12/08/18 09:41 Dose: 25 mg Piperacillin Sod/Tazobactam (Sod 3.375 gm/ Dextrose) 50 mls @ 100 mls/hr IVPB Q8H-IV [facility]; Protocol Last Admin: 12/08/18 09:41 Dose: 100 mls/hr Insulin Aspart (Novolog Vial Sliding Scale -) 1 vial SQ ACHS [facility]; Protocol Last Admin: 12/08/18 11:32 Dose: 4 units Losartan Potassium (Cozaar -) 100 mg PO DAILY [facility] Last Admin: 12/08/18 09:42 Dose: 100 mg Metformin HCl (Glucophage -) 850 mg PO BID@0700,1630 [facility] Last Admin: 12/08/18 08:26 Dose: 850 mg Ondansetron HCl (Zofran Injection) 4 mg IVPUSH Q6H PRN PRN Reason: NAUSEA AND/OR VOMITING - Objective Vital Signs: Vital Signs Temperature 97.8 F 12/08/18 09:00 Pulse Rate 76 12/08/18 09:00 Respiratory Rate 18 12/08/18 09:00 Blood Pressure 124/76 12/08/18 09:00 O2 Sat by Pulse Oximetry (%) 98 12/08/18 09:00 Labs: CBC, BMP 12/08/18 06:00 12/08/18 06:00 INR, PTT INR 1.25 (0.83-1.09) H 12/06/18 10:00
--- NOTE | 2018-12-08 14:18 | PATH ---
Surgical Pathology Report Patient Name: BUNNY BOWERS [facility]. Rec. #: [id number] /Age/Gender: 1950 (Age: 68) / M Account: [id number] Location: [address] [place] [address]/[facility] Taken: 12/07/2018 Received: 12/07/2018 Reported: 12/08/2018 Physicians: JOSÉ MIGUEL Rodriguez M.D. Specimen(s) Received A: FIFTH METATARSAL HEAD B: CLEAR MARGIN FIFTH METATARSAL C: LEFT FIFTH TOE Clinical History Osteomyelitis Final Diagnosis A. FIFTH METATARSAL HEAD, RESECTION: BONE WITH MODERATE ACUTE AND CHRONIC OSTEOMYELITIS, AND REMODELING. B. FIFTH METATARSAL, CLEAR MARGIN, RESECTION: BONE WITH MILD ACUTE AND CHRONIC OSTEOMYELITIS, AND REMODELING. C. FIFTH TOE, LEFT, AMPUTATION: MILD ACUTE AND CHRONIC OSTEOMYELITIS INVOLVING BONE AND EXTENDING TO SURGICAL MARGIN. DIGIT WITH CHRONIC INFLAMMATION, FOCAL ULCERATION AND REACTIVE CHANGES. SKIN AND SOFT TISSUE MARGINS ARE VIABLE. Electronically Signed Katy Shaw M.D. Gross Description A. Received in formalin labeled "fifth metatarsal head," is a 3.0 x 2.4 x 0.6 cm aggregate of multiple francisco-red portions of bone and soft tissue. [employer] sections are submitted in one cassette, following decalcification. B. Received in formalin labeled "clear margin fifth metatarsal," is a 2.2 x 1.8 x 1.1 cm francisco-red, irregular portion of bone. A full thickness section is submitted in one cassette, following decalcification. C. Received in formalin labeled "left fifth toe," is a 4.5 x 2.3 x 2.0 cm toe amputation specimen. The skin appears francisco and mildly macerated. The underlying bone is markedly softened. Separately received within the same container is a 3.0 x 2.2 x 0.4 cm aggregate of multiple portions of skin and soft tissue. [employer] Att[employer] sections are submitted in 4 cassettes as follows: 1-cross section of amputation, following decalcification; 2-bone margin, following decalcification; 3-skin and soft tissue margin; 4-separately received skin and soft tissue fragments. /12/07/2018 saudi/12/07/2018
--- NOTE | 2018-12-08 16:04 | PN ---
Progress Note (short form) - Note Progress Note: pod#1. No pain. VSS Tmax 98.6 +dressing intact, -drainage noted, wbc=7.7, normal post op post op xray reviewed. Dressing change tomorrow. Awaiting results of OR culture done. Will follow.
--- NOTE | 2018-12-08 21:50 | PN ---
Progress Note, Physician History of Present Illness: No new complaints - Current Medication List Current Medications: Active Medications Hydrochlorothiazide (Hctz -) 25 mg PO DAILY [facility] Last Admin: 12/08/18 09:41 Dose: 25 mg Piperacillin Sod/Tazobactam (Sod 3.375 gm/ Dextrose) 50 mls @ 100 mls/hr IVPB Q8H-IV [facility]; Protocol Last Admin: 12/08/18 18:15 Dose: 100 mls/hr Insulin Aspart (Novolog Vial Sliding Scale -) 1 vial SQ ACHS [facility]; Protocol Last Admin: 12/08/18 21:42 Dose: Not Given Losartan Potassium (Cozaar -) 100 mg PO DAILY [facility] Last Admin: 12/08/18 09:42 Dose: 100 mg Metformin HCl (Glucophage -) 850 mg PO BID@0700,1630 [facility] Last Admin: 12/08/18 17:23 Dose: 850 mg Ondansetron HCl (Zofran Injection) 4 mg IVPUSH Q6H PRN PRN Reason: NAUSEA AND/OR VOMITING - Objective Vital Signs: Vital Signs Temperature 98.5 F 12/08/18 20:02 Pulse Rate 77 12/08/18 20:02 Respiratory Rate 18 12/08/18 20:02 Blood Pressure 112/67 12/08/18 20:02 O2 Sat by Pulse Oximetry (%) 98 12/08/18 09:00 Neck: Yes: WNL, Supple Cardiovascular: Yes: WNL, Regular Rate and Rhythm Respiratory: Yes: WNL, Regular, CTA Bilaterally Gastrointestinal: Yes: WNL, Normal Bowel Sounds, Soft Labs: CBC, BMP 12/08/18 06:00 12/08/18 06:00 INR, PTT INR 1.25 (0.83-1.09) H 12/06/18 10:00 Problem List - Problems (1) Diabetic foot infection Assessment/Plan: Cont IV antibxs Wound cultures (+) for Morganella BC remain negative Cont IV zosyn S/P amputation 5th toe Await ID recommendations about outpt antibxs DC planning PT eval was cleared by podiatry Code(s): E11.628 - TYPE 2 DIABETES MELLITUS WITH OTHER SKIN COMPLICATIONS; L08.9 - LOCAL INFECTION OF THE SKIN AND SUBCUTANEOUS TISSUE, UNSP (2) Diabetes Assessment/Plan: Cont metformin Cont sliding scale w/ coverage Code(s): E11.9 - TYPE 2 DIABETES MELLITUS WITHOUT COMPLICATIONS (3) HTN (hypertension) Assessment/Plan: Cont losartan/Hctz Code(s): I10 - ESSENTIAL (PRIMARY) HYPERTENSION (4) PAD (peripheral artery disease) Assessment/Plan: As per [facility] surgery recommendations Code(s): I73.9 - PERIPHERAL VASCULAR DISEASE, UNSPECIFIED
[2018-12-09] MEDS ORDERED: DEXTROSE 5%-WATER - 50 ML IVPB ONE ×3 (01:03→17:08)
[2018-12-09] MEDS ORDERED: PIPERACILLIN/TAZOBACTAM 3.375 GM VIAL IVPB ONE ×3 (01:03→17:08)
[2018-12-09] MEDS: PIPERACILLIN/TAZOB 3.375 GM 3.375 GM in DEXTROSE 5%-WATER - 50 ML IVPB SCH ×3 (01:57→17:09)
[2018-12-09] MEDS: INSULIN SLIDING SCALE (NOVOLOG) 1 VIAL SQ SCH ×4 (06:16→22:54)
[2018-12-09] MEDS ORDERED: PT OWN MED DRAWER 7, Y5N ONE ×3 (08:47→18:40)
[2018-12-09] MEDS: LOSARTAN POTASSIUM 50 MG TABLET (FP) PO SCH (09:02)
[2018-12-09] MEDS: HYDROCHLOROTHIAZIDE 25 MG TABLET (FP) PO SCH (09:03)
--- NOTE | 2018-12-09 12:56 | PN ---
Progress Note, Physician History of Present Illness: patient stable no new issues still awaiting identification of the organism - Current Medication List Current Medications: Active Medications Hydrochlorothiazide (Hctz -) 25 mg PO DAILY [facility] Last Admin: 12/09/18 09:03 Dose: 25 mg Piperacillin Sod/Tazobactam (Sod 3.375 gm/ Dextrose) 50 mls @ 100 mls/hr IVPB Q8H-IV [facility]; Protocol Last Admin: 12/09/18 09:03 Dose: 100 mls/hr Insulin Aspart (Novolog Vial Sliding Scale -) 1 vial SQ ACHS [facility]; Protocol Last Admin: 12/09/18 11:31 Dose: 4 units Losartan Potassium (Cozaar -) 100 mg PO DAILY [facility] Last Admin: 12/09/18 09:02 Dose: 100 mg Metformin HCl (Glucophage -) 850 mg PO BID@0700,1630 [facility] Last Admin: 12/09/18 09:02 Dose: 850 mg Ondansetron HCl (Zofran Injection) 4 mg IVPUSH Q6H PRN PRN Reason: NAUSEA AND/OR VOMITING - Objective Vital Signs: Vital Signs Temperature 98.5 F 12/09/18 02:00 Pulse Rate 71 12/09/18 02:00 Respiratory Rate 18 12/09/18 02:00 Blood Pressure 112/60 12/09/18 02:00 O2 Sat by Pulse Oximetry (%) 98 12/08/18 21:00 Constitutional: Yes: No Distress, Calm Cardiovascular: Yes: Regular Rate and Rhythm Respiratory: Yes: Regular, CTA Bilaterally Gastrointestinal: Yes: Normal Bowel Sounds, Soft Musculoskeletal: Yes: WNL Extremities: Yes: Other Wound/Incision: Yes: Dressing Dry and Intact Neurological: Yes: Alert, Oriented Psychiatric: Yes: Alert Labs: CBC, BMP 12/08/18 06:00 12/08/18 06:00 INR, PTT INR 1.25 (0.83-1.09) H 12/06/18 10:00 Assessment/Plan patient with medical problems osteo of the left 5th toe erythema of the foot plan continue abx post amputation awaiting identification of the organism rest as per the team
[2018-12-09 15:51] VITALS: BMI 28.3
[2018-12-09] MEDS ORDERED: INSULIN (NOVOLOG) ASPART 100 UNITS/ML 10ML VIAL ONE ×2 (18:34→21:15)
--- NOTE | 2018-12-09 18:40 | PN ---
Progress Note (short form) - Note Progress Note: pod#2. No pain. VSS Tmax 98.6 +dressing intact, -drainage noted, wbc=7.7, culture not ready yet from OR normal post op Packing pulled. Betadine dressing applied. Awaiting results of OR culture done. Will follow. May go to bathroom. Post op shoe left. Uric acid level to be ordered.
--- NOTE | 2018-12-09 23:25 | PN ---
Progress Note, Physician History of Present Illness: No new complaints - Current Medication List Current Medications: Active Medications Hydrochlorothiazide (Hctz -) 25 mg PO DAILY [facility] Last Admin: 12/09/18 09:03 Dose: 25 mg Piperacillin Sod/Tazobactam (Sod 3.375 gm/ Dextrose) 50 mls @ 100 mls/hr IVPB Q8H-IV [facility]; Protocol Last Admin: 12/09/18 17:09 Dose: 100 mls/hr Insulin Aspart (Novolog Vial Sliding Scale -) 1 vial SQ ACHS [facility]; Protocol Last Admin: 12/09/18 22:54 Dose: 4 units Losartan Potassium (Cozaar -) 100 mg PO DAILY [facility] Last Admin: 12/09/18 09:02 Dose: 100 mg Metformin HCl (Glucophage -) 850 mg PO BID@0700,1630 [facility] Last Admin: 12/09/18 18:29 Dose: 850 mg Ondansetron HCl (Zofran Injection) 4 mg IVPUSH Q6H PRN PRN Reason: NAUSEA AND/OR VOMITING - Objective Vital Signs: Vital Signs Temperature 98.6 F 12/09/18 18:48 Pulse Rate 77 12/09/18 21:26 Respiratory Rate 18 12/09/18 21:26 Blood Pressure 132/80 12/09/18 21:26 O2 Sat by Pulse Oximetry (%) 96 12/09/18 09:00 Constitutional: Yes: Well Nourished Neck: Yes: WNL, Supple Cardiovascular: Yes: WNL, Regular Rate and Rhythm Respiratory: Yes: WNL, Regular, CTA Bilaterally Gastrointestinal: Yes: WNL, Normal Bowel Sounds, Soft Extremities: Yes: Other (Lt foot w/ dry dressing) Labs: CBC, BMP 12/08/18 06:00 12/08/18 06:00 INR, PTT INR 1.25 (0.83-1.09) H 12/06/18 10:00 Problem List - Problems (1) Diabetic foot infection Assessment/Plan: Cont IV antibxs Wound cultures (+) for Morganella BC remain negative Cont IV zosyn S/P amputation 5th toe Dressing was changed by podiatry Code(s): E11.628 - TYPE 2 DIABETES MELLITUS WITH OTHER SKIN COMPLICATIONS; L08.9 - LOCAL INFECTION OF THE SKIN AND SUBCUTANEOUS TISSUE, UNSP (2) Diabetes Assessment/Plan: Cont metformin Cont sliding scale w/ coverage Code(s): E11.9 - TYPE 2 DIABETES MELLITUS WITHOUT COMPLICATIONS (3) HTN (hypertension) Assessment/Plan: Cont losartan/Hctz Code(s): I10 - ESSENTIAL (PRIMARY) HYPERTENSION (4) PAD (peripheral artery disease) Code(s): I73.9 - PERIPHERAL VASCULAR DISEASE, UNSPECIFIED
[2018-12-10] MEDS ORDERED: PIPERACILLIN/TAZOBACTAM 3.375 GM VIAL IVPB ONE ×2 (01:14→08:36)
[2018-12-10] MEDS ORDERED: DEXTROSE 5%-WATER - 50 ML IVPB ONE ×2 (01:14→08:37)
[2018-12-10] MEDS: PIPERACILLIN/TAZOB 3.375 GM 3.375 GM in DEXTROSE 5%-WATER - 50 ML IVPB SCH ×2 (02:01→09:55)
[2018-12-10] MEDS: INSULIN SLIDING SCALE (NOVOLOG) 1 VIAL SQ SCH ×4 (06:33→21:29)
[2018-12-10 07:08] LABS: BASO % 0.7 % (0-2.0); EOS % 1.1 % (0-4.5); HEMATOCRIT 35.4 % (35.4-49); HEMOGLOBIN 11.5 GM/dL (11.7-16.9); LYMPH % 16.3 % (8-40); MCH 29.3 pg (25.7-33.7); MCHC 32.6 g/dl (32.0-35.9); MEAN CELL VOLUME 89.9 fl (80-96); MONO % 10.5 % (3.8-10.2); NEUT % 71.4 % (42.8-82.8); RBC 3.94 M/mm3 (4.00-5.60); RDW 11.9 % (11.9-15.9); WHITE BLOOD COUNT 7.8 K/mm3 (4.0-10.0)
[2018-12-10 07:47] LABS: ALBUMIN 2.7 g/dl (3.4-5.0); ALK PHOS 58 U/L (45-117); ANION GAP 7 MMOL/L (8-16); BLOOD UREA NITROGEN 19 mg/dL (7-18); CALCIUM 8.4 mg/dL (8.5-10.1); CHLORIDE 101 mmol/L (98-107); CO2 31 mmol/L (21-32); GLUCOSE,RANDOM 132 mg/dL (74-106); POTASSIUM 3.2 mmol/L (3.5-5.1); SGOT/AST 12 U/L (15-37); SGPT/ALT 24 U/L (13-61); SODIUM 139 mmol/L (136-145); TOT PROT 6.1 g/dl (6.4-8.2); URIC ACID 4.1 mg/dL (2.6-7.2)
[2018-12-10] MEDS ORDERED: PT OWN MED DRAWER 7, Y5N ONE (08:32)
[2018-12-10] MEDS: LOSARTAN POTASSIUM 50 MG TABLET (FP) PO SCH (09:56)
[2018-12-10] MEDS: HYDROCHLOROTHIAZIDE 25 MG TABLET (FP) PO SCH (09:56)
--- NOTE | 2018-12-10 16:36 | PN ---
Progress Note, Physician History of Present Illness: patient stable doing well no issues spoke with the podiatry team very deep cx are positive for coag neg staph even after bone removed - Current Medication List Current Medications: Active Medications Hydrochlorothiazide (Hctz -) 25 mg PO DAILY [facility] Last Admin: 12/10/18 09:56 Dose: 25 mg Piperacillin Sod/Tazobactam (Sod 3.375 gm/ Dextrose) 50 mls @ 100 mls/hr IVPB Q8H-IV [facility]; Protocol Last Admin: 12/10/18 09:55 Dose: 100 mls/hr Insulin Aspart (Novolog Vial Sliding Scale -) 1 vial SQ ACHS [facility]; Protocol Last Admin: 12/10/18 11:27 Dose: 4 units Losartan Potassium (Cozaar -) 100 mg PO DAILY [facility] Last Admin: 12/10/18 09:56 Dose: 100 mg Metformin HCl (Glucophage -) 850 mg PO BID@0700,1630 [facility] Last Admin: 12/10/18 08:34 Dose: 850 mg Ondansetron HCl (Zofran Injection) 4 mg IVPUSH Q6H PRN PRN Reason: NAUSEA AND/OR VOMITING - Objective Vital Signs: Vital Signs Temperature 98.1 F 12/10/18 14:39 Pulse Rate 80 12/10/18 14:39 Respiratory Rate 18 12/10/18 14:39 Blood Pressure 110/63 12/10/18 14:39 O2 Sat by Pulse Oximetry (%) 98 12/10/18 09:00 Constitutional: Yes: No Distress, Calm Cardiovascular: Yes: Regular Rate and Rhythm Respiratory: Yes: Regular, CTA Bilaterally Gastrointestinal: Yes: Normal Bowel Sounds, Soft Musculoskeletal: Yes: WNL Extremities: Yes: Other Neurological: Yes: Alert, Oriented Psychiatric: Yes: Alert, Oriented Labs: CBC, BMP 12/10/18 06:30 12/10/18 06:30 INR, PTT INR 1.25 (0.83-1.09) H 12/06/18 10:00 Assessment/Plan patient with medical problems 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
[2018-12-10] MEDS: VANCOMYCIN 1,250 MG in DEXTROSE 5%-WATER - 250 ML IVPB SCH (19:38)
[2018-12-10] MEDS: KCL 10 MEQ IVPB 10 MEQ/100 ML INFUS.BAG IVPB SCH ×3 (21:29→23:57)
--- NOTE | 2018-12-10 23:13 | PN ---
Progress Note, Physician - Current Medication List Current Medications: Active Medications Hydrochlorothiazide (Hctz -) 25 mg PO DAILY [facility] Last Admin: 12/10/18 09:56 Dose: 25 mg Vancomycin HCl 1,250 mg/ (Dextrose) 250 mls @ 250 mls/2 hr IVPB DAILY@1800 [facility] ; Protocol Last Admin: 12/10/18 19:38 Dose: 250 mls/2 hr Potassium Chloride (Potassium Chloride 10 Meq Premix Ivpb -) 10 meq in 100 mls @ 100 mls/hr IVPB Q60M [facility] Stop: 12/10/18 23:14 Last Admin: 12/10/18 22:39 Dose: 100 mls/hr Insulin Aspart (Novolog Vial Sliding Scale -) 1 vial SQ ACHS [facility]; Protocol Last Admin: 12/10/18 21:29 Dose: 2 units Losartan Potassium (Cozaar -) 100 mg PO DAILY [facility] Last Admin: 12/10/18 09:56 Dose: 100 mg Metformin HCl (Glucophage -) 850 mg PO BID@0700,1630 [facility] Last Admin: 12/10/18 18:03 Dose: 850 mg Ondansetron HCl (Zofran Injection) 4 mg IVPUSH Q6H PRN PRN Reason: NAUSEA AND/OR VOMITING - Objective Vital Signs: Vital Signs Temperature 97.6 F 12/10/18 18:37 Pulse Rate 78 12/10/18 22:46 Respiratory Rate 18 12/10/18 22:46 Blood Pressure 127/68 12/10/18 22:46 O2 Sat by Pulse Oximetry (%) 98 12/10/18 09:00 Labs: CBC, BMP 12/10/18 06:30 12/10/18 06:30 INR, PTT INR 1.25 (0.83-1.09) H 12/06/18 10:00 Problem List - Problems (1) Diabetic foot infection Code(s): E11.628 - TYPE 2 DIABETES MELLITUS WITH OTHER SKIN COMPLICATIONS; L08.9 - LOCAL INFECTION OF THE SKIN AND SUBCUTANEOUS TISSUE, UNSP (2) Diabetes Code(s): E11.9 - TYPE 2 DIABETES MELLITUS WITHOUT COMPLICATIONS (3) HTN (hypertension) Code(s): I10 - ESSENTIAL (PRIMARY) HYPERTENSION (4) PAD (peripheral artery disease) Code(s): I73.9 - PERIPHERAL VASCULAR DISEASE, UNSPECIFIED
[2018-12-11] MEDS ORDERED: PT OWN MED DRAWER 7, Y5N ONE ×2 (06:20→06:46)
[2018-12-11] MEDS: INSULIN SLIDING SCALE (NOVOLOG) 1 VIAL SQ SCH ×2 (06:47→12:38)
[2018-12-11 07:43] LABS: EOS % 1.3 % (0-4.5); HEMATOCRIT 35.8 % (35.4-49); HEMOGLOBIN 11.9 GM/dL (11.7-16.9); LYMPH % 21.8 % (8-40); MCH 29.5 pg (25.7-33.7); MCHC 33.2 g/dl (32.0-35.9); MEAN CELL VOLUME 88.8 fl (80-96); MEAN PLT VOLUME 9.2 fl (7.5-11.1); MONO % 8.8 % (3.8-10.2); NEUT % 67.1 % (42.8-82.8); PLATELET COUNT 180 K/MM3 (134-434); RBC 4.03 M/mm3 (4.00-5.60); WHITE BLOOD COUNT 6.3 K/mm3 (4.0-10.0)
[2018-12-11 08:09] LABS: ALBUMIN 2.9 g/dl (3.4-5.0); ALK PHOS 61 U/L (45-117); ANION GAP 8 MMOL/L (8-16); BILIRUBIN,TOTAL 0.5 mg/dL (0.2-1); BLOOD UREA NITROGEN 19 mg/dL (7-18); CALCIUM 8.5 mg/dL (8.5-10.1); CHLORIDE 100 mmol/L (98-107); CO2 30 mmol/L (21-32); CREATININE 0.9 mg/dL (0.55-1.3); GLUCOSE,RANDOM 130 mg/dL (74-106); POTASSIUM 3.9 mmol/L (3.5-5.1); SGOT/AST 13 U/L (15-37); SGPT/ALT 25 U/L (13-61); SODIUM 138 mmol/L (136-145); TOT PROT 6.7 g/dl (6.4-8.2)
[2018-12-11] MEDS: LOSARTAN POTASSIUM 50 MG TABLET (FP) PO SCH (09:53)
[2018-12-11] MEDS: HYDROCHLOROTHIAZIDE 25 MG TABLET (FP) PO SCH (09:53)
[2018-12-11] MEDS: VANCOMYCIN 1,250 MG in DEXTROSE 5%-WATER - 250 ML IVPB SCH (13:08)
--- NOTE | 2018-12-11 13:48 | PN ---
Progress Note, Physician History of Present Illness: patient stable no other isses picc line in place patient doing well - Current Medication List Current Medications: Active Medications Hydrochlorothiazide (Hctz -) 25 mg PO DAILY [facility] Last Admin: 12/11/18 09:53 Dose: 25 mg Vancomycin HCl 1,250 mg/ (Dextrose) 250 mls @ 250 mls/2 hr IVPB DAILY@1800 [facility] ; Protocol Last Admin: 12/11/18 13:08 Dose: 250 mls/2 hr Insulin Aspart (Novolog Vial Sliding Scale -) 1 vial SQ ACHS [facility]; Protocol Last Admin: 12/11/18 12:38 Dose: Not Given Losartan Potassium (Cozaar -) 100 mg PO DAILY [facility] Last Admin: 12/11/18 09:53 Dose: 100 mg Metformin HCl (Glucophage -) 850 mg PO BID@0700,1630 [facility] Last Admin: 12/11/18 07:03 Dose: 850 mg Ondansetron HCl (Zofran Injection) 4 mg IVPUSH Q6H PRN PRN Reason: NAUSEA AND/OR VOMITING - Objective Vital Signs: Vital Signs Temperature 98.2 F 12/11/18 09:49 Pulse Rate 88 12/11/18 09:49 Respiratory Rate 18 12/11/18 09:49 Blood Pressure 116/65 12/11/18 09:49 O2 Sat by Pulse Oximetry (%) 98 12/10/18 09:00 Constitutional: Yes: No Distress, Calm Cardiovascular: Yes: Regular Rate and Rhythm Respiratory: Yes: Regular, CTA Bilaterally Gastrointestinal: Yes: Normal Bowel Sounds, Soft Musculoskeletal: Yes: WNL Extremities: Yes: Other Wound/Incision: Yes: Dressing Dry and Intact Neurological: Yes: Alert, Oriented Psychiatric: Yes: Alert, Oriented Labs: CBC, BMP 12/11/18 06:40 12/11/18 06:40 INR, PTT INR 1.25 (0.83-1.09) H 12/06/18 10:00 Assessment/Plan patient with medical problems 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
[2018-12-11 15:27] VITALS: BP 103/70; PULSE 90; TEMP 98.3
== END 2018-12-11 15:56 | disposition home health service (06) | DRG 617 ==
LOC: JER 13:23 → JERBED 16:51 → J5S 19:47
PROVIDERS: ADMIT Internal Medicine; ATTEND Internal Medicine
PROC: 0Y6Y0Z1 Detachment at Left 5th Toe, High, Open Approach (ICD-10-PCS; principal; 2018-12-07 09:30)
PROC: 0QBP0ZZ Excision of Left Metatarsal, Open Approach (ICD-10-PCS; 2018-12-07 09:30)
PROC: 02HV33Z Insertion of Infusion Device into Superior Vena Cava, Percutaneous Approach (ICD-10-PCS; 2018-12-11)
PROC: B518ZZA Fluoroscopy of Superior Vena Cava, Guidance (ICD-10-PCS; 2018-12-11)
DX: E11.69 Type 2 diabetes mellitus with other specified complication (principal); L97.528 Non-pressure chronic ulcer of other part of left foot with other specified severity; M86.8X7 Other osteomyelitis, ankle and foot; E11.621 Type 2 diabetes mellitus with foot ulcer; L08.9 Local infection of the skin and subcutaneous tissue, unspecified; E11.51 Type 2 diabetes mellitus with diabetic peripheral angiopathy without gangrene; L03.032 Cellulitis of left toe; I10 Essential (primary) hypertension; B95.7 Other staphylococcus as the cause of diseases classified elsewhere
CPT/HCPCS: 36415; 36569; 71045-TC-FY; 73630-TC-LT; 75635-TC; 77001-TC-FY; 80053; 81003; 82962; 83036; 83605; 84550; 85025; 85610; 85651; 85730; 86140; 86850; 86900; 86901; 87040; 87070; 87086; 87186; 87205; 88305-TC; 88311-TC; 93005; 93010; 94760; 99282-25; C1751; J1644; J7030